=== PATIENT | male | born 1950 | race Caucasian/White ===

== ENCOUNTER 2017-07-29 21:35 | Inpatient (IN) | payer OTHER ==
[~2017-07-29] VITALS: Ht 177.8 cm; Wt 92.1 kg
[~2017-07-29 21:35] MED LIST: FISH OIL; MULTIVITAMIN; VITAMIN C500 M4 PO; VITAMIN E PO; Z.0.LEVOXYL137 MCG PO; Z.0.LIPITOR10 MG PO
[2017-07-29] MEDS ORDERED: FLOMAX0.4 MG PO (23:40)
[2017-07-29] MEDS ORDERED: LIPITOR20 MG (23:40)
[2017-07-30] MEDS ORDERED: ONDANSETRON HCL INJ 2 MG/ML VIAL IV ONE (00:15)
[2017-07-30] MEDS ORDERED: PANTOPRAZOLE 40 MG 10ML VIAL IV ONE (00:15)
[2017-07-30] MEDS ORDERED: MORPHINE SULFATE 4 MG/ML SYR IV ONE (00:15)
[2017-07-30] MEDS ORDERED: FAMOTIDINE 20 MG/2 ML VIAL IV ONE (00:15)
[2017-07-30] MEDS ORDERED: SODIUM CHLORIDE 0.9% 1000ML 1,000 ML IV SCH (00:45)
[2017-07-30] MEDS ORDERED: PIPERACILLIN/TAZOBAC 3.375 GM VIAL IV ONE (00:45)
[2017-07-30] MEDS ORDERED: MORPHINE SULFATE 2 MG/ML SYR IV PRN (00:45)
[2017-07-30] MEDS ORDERED: ONDANSETRON HCL INJ 2 MG/ML VIAL IV PRN (00:45)
[2017-07-30] MEDS: SODIUM CHLORIDE 0.9% 1000ML 1,000 ML IV SCH ×5 (03:12→21:38)
[2017-07-30 04:00] VITALS: BP 135/63
[2017-07-30] MEDS: PIPER-TAZ 3.375 GM 50 ML IV SCH ×3 (05:32→21:53)
[2017-07-30] MEDS ORDERED: PIPER-TAZ 3.375 GM/50 ML BAG IV SCH (06:00)
[2017-07-30 07:49] VITALS: BP 127/61
[2017-07-30] MEDS: FAMOTIDINE 20 MG/2 ML VIAL IV SCH ×2 (09:59→18:06)
[2017-07-30 12:09] VITALS: BP 126/68
--- NOTE | 2017-07-30 12:25 | Diagnostic Imaging Report ---
PROCEDURE:GALLBLADDER ULTRASOUND COMPARISON:None. INDICATION:Right upper quadrant pain TECHNIQUE:Mora scale color Doppler ultrasound gallbladder FINDINGS: Right liver spanning 15 cm. Normal parenchymal echogenicity and contour. Portal vein diameter 1.1 cm; normal flow direction. Subcentimeter calcified gallstone at the gallbladder neck. Wall thickness 0.6 cm with trace pericholecystic fluid. Common bile that diameter 4 mm. No sonographic Velez sign. Image portions of the IVC, aorta, pancreas and right kidney are unremarkable. CONCLUSION: Cholelithiasis with gallbladder wall thickening. In the absence of a positive sonographic Velez sign findings may be seen in both acute and chronic cholecystitis. Consider nuclear medicine study for further characterization if clinically warranted. Dictated by: Juan Miguel Cummings M.D. on 07/30/2017 at 12:26 Electronically approved by: Juan Miguel Cummings M.D. on 07/30/2017 at 12:26
[2017-07-30 16:01] VITALS: BP 146/71
[2017-07-30 20:00] VITALS: BP 148/72
[2017-07-30] MEDS: TAMSULOSIN HCL 0.4 MG CAP PO SCH (21:08)
[2017-07-31] VITALS (8 sets, daily range): BP systolic 144–184; BP diastolic 74–85
--- NOTE | 2017-07-31 00:16 | History and Physical ---
PRIMARY CARE DOCTOR: Dr. Moe Melendrez This is coverage for Dr. Galo Leija MD HISTORY: Mr. Jones is a pleasant 66-year-old gentleman with right upper quadrant tenderness. Patient was in his usual state of health until 2 days ago. He has never had pain like this before. Pain was in the right upper quadrant and epigastric area. The pain was 10/10 in severity. It was found to be worse after meals. It finally went away, but patient is not sure what caused it to go away. He did have to get some pain medicine. He elected to come to emergency room for acute evaluation. In the emergency room, he had gallbladder ultrasound with multiple subcentimeter calcified gallstones including at the gallbladder neck. Wall thickness 0.6 cm with trace pericholecystic fluid. Common bile duct 4 mm. Due to the severity of the pain that he had and due to the fact he has multiple stones including at the common bile duct, patient is being recommended for surgery and he is admitted. LFTs were also elevated. PAST MEDICAL HISTORY: Dyslipidemia, BPH, plantar fasciitis. SURGERY: Parathyroidectomy. MEDICATIONS: Levoxyl, Lipitor, Flomax. ALLERGIES: NO KNOWN DRUG ALLERGIES. SOCIAL HISTORY: No smoking, no drinking, no drugs. Patient is conductor/engineer. FAMILY HISTORY: Noncontributory to this condition. REVIEW OF SYSTEMS: GENERAL: No weight changes. OPHTHALMOLOGIC: No double vision. ENT: No dry mouth. IMMUNOLOGIC: No lupus. PULMONARY: No asthma. CARDIAC: No heart attacks. GI: No constipation. : No blood in urine. MUSCULOSKELETAL: Mild arthritis. NEUROLOGIC: No seizures. PSYCHIATRIC: No depression. OBJECTIVE: VITAL SIGNS: Afebrile, vital signs noted per electronic record. GENERAL: In no acute distress, alert and calm. HEENT: Normocephalic, atraumatic. NECK: Supple. Throat midline. LUNGS: Bilateral air entry, clear. CARDIOVASCULAR: S1 and S2. No murmurs, rubs, or gallops. ABDOMEN: Soft and nontender right now on my exam pain is gotten lot better. EXTREMITIES: No clubbing, no cyanosis, no edema. INTEGUMENT: No rash, no purpura. LABS: 3.7 potassium, 29 bicarbonate, 10 BUN, 1.0 creatinine, 139 sodium. 7 white count, 44 hematocrit, 230,000 platelets. AST 152, alkaline phosphatase 124, ALT 104, albumin 3.6. IMPRESSION AND PLAN: 1. Chronic cholecystitis. 2. Treat for acute cholecystitis. 3. Multiple cholelithiasis. 4. History of dyslipidemia. 5. Benign prostatic hypertrophy. 6. Elevated liver function tests. Patient with evolving gallbladder disease. Recommendations for early surgery. Patient will be admitted to observation and likely admitted for expectant surgery. Repeat liver function tests in the morning. Resume some outpatient medications. I would like to thank Dr. Moe Melendrez and Dr. Galo Leija for allowing me the chance to participate in the care of Mr. Jones. Do not hesitate to contact me if I can help in anyway. Job#: [id number]
--- NOTE | 2017-07-31 00:25 | Consultation ---
DATE OF CONSULTATION: July 30, 2017 CHIEF COMPLAINT: Abdominal pain. HISTORY OF PRESENT ILLNESS: The patient is 66-year-old male with 2-day history of pain in epigastric region, radiating to the back with nausea, but no vomiting. He denied diarrhea or fevers. PAST MEDICAL HISTORY: Unremarkable for any chronic medical illness. SURGICAL HISTORY: Positive for foot surgery for plantar fasciitis and thyroidectomy. ALLERGIES: PATIENT HAS NO DRUG ALLERGIES. SOCIAL HABITS: He does not smoke or drink alcohol. REVIEW OF SYSTEMS: No cough, chest pain, or shortness of breath. PHYSICAL EXAMINATION: VITAL SIGNS: Stable. He is afebrile. GENERAL: Patient is awake, alert, in moderate discomfort. HEENT: Sclerae nonicteric. NECK: Supple. LUNGS: Clear. HEART: Regular rate and rhythm. ABDOMEN: Soft with mild guarding in epigastric area. No rebound. EXTREMITIES: Without cyanosis or edema. LABORATORY DATA: The patient's bilirubin is 0.9, alkaline phosphatase of 124. The patient's white cell count is 9.8. Ultrasound of gallbladder showed gallstones. ASSESSMENT: Gallstone, possible cholecystitis. PLAN: Laparoscopic cholecystectomy. Attendant risks discussed with patient in detail. Thank you. Job#: [id number]
[2017-07-31] MEDS: SODIUM CHLORIDE 0.9% 1000ML 1,000 ML IV SCH ×3 (00:45→18:11)
[2017-07-31] MEDS: LEVOTHYROXINE SODIUM 25 MCG TABLET PO SCH (05:09)
[2017-07-31] MEDS: LEVOTHYROXINE SODIUM 112 MCG TAB PO SCH (05:09)
[2017-07-31] MEDS: PIPER-TAZ 3.375 GM 50 ML IV SCH ×3 (05:30→21:30)
[2017-07-31 07:04] LABS: BASOPHILS % 0.4 % (0.0-1.0); EOSINOPHILS # (AUTO) 0.2 (0.0-0.4); EOSINOPHILS % 2.9 % (0.0-6.0); HEMATOCRIT 36.7 % (38.2-49.6); HEMOGLOBIN 12.9 g/dL (14.0-18.0); LYMPHOCYTES # (AUTO) 0.7 (1.0-3.2); LYMPHOCYTES % 8.5 % (18.0-39.1); MEAN CORPUSCULAR HEMOGLOBIN 31.5 pg (28-32); MEAN CORPUSCULAR HGB CONC 35.1 g/dL (31-35); MEAN CORPUSCULAR VOLUME 89.5 fL (81-99); MONOCYTES # (AUTO) 0.6 (0.2-0.8); MONOCYTES % 7.5 % (4.4-11.3); NEUTROPHILS # (AUTO) 6.3 (2.1-6.9); NEUTROPHILS % 80.4 % (38.7-80.0); PLATELET COUNT 201 x10e3/uL (140-360)
[2017-07-31 07:25] LABS: ALANINE AMINOTRANSFERASE 619 IU/L (0-55); ALBUMIN 2.9 g/dL (3.5-5.0); ALBUMIN/GLOBULIN RATIO 1.1 (0.8-2.0); ALKALINE PHOSPHATASE 127 IU/L (40-150); ANION GAP 10.1 mmol/L (8-16); BLOOD UREA NITROGEN 8 mg/dL (7-26); BUN/CREATININE RATIO 8 (6-25); CALCIUM 8.4 mg/dL (8.4-10.2); CARBON DIOXIDE 25 mmol/L (22-29); CHLORIDE 107 mmol/L (98-107); CREATININE, SERUM 0.98 mg/dL (0.72-1.25); EST GLOMERULAR FILTRATION RATE > 60 ML/MIN (60-); GLUCOSE 110 mg/dL (74-118); LIPASE 30 U/L (8-78); POTASSIUM 4.1 mmol/L (3.5-5.1); SODIUM 138 mmol/L (136-145)
[2017-07-31] MEDS: FAMOTIDINE 20 MG/2 ML VIAL IV SCH ×2 (07:30→18:20)
[2017-07-31] MEDS ORDERED: BUPIVACAINE 0.5%/EPI 30 ML SDV INJ ONE (08:30)
[2017-07-31] MEDS ORDERED: BUPIVACAINE 0.25%/EPI 30ML SDV INJ ONE (08:37)
[2017-07-31] MEDS ORDERED: NEOSTIGMINE 1 MG/ML 10ML VIAL ONE (09:20)
[2017-07-31] MEDS ORDERED: MORPHINE SULFATE 2 MG/ML SYR IV PRN (12:45)
--- NOTE | 2017-07-31 13:26 | Operative Report ---
DATE OF PROCEDURE: July 31, 2017 PREOPERATIVE DIAGNOSIS: Cholecystitis. POSTOPERATIVE DIAGNOSIS: Cholecystitis. OPERATIVE PROCEDURE: Laparoscopic cholecystectomy. ANESTHESIA: General. INDICATION: The patient is a 66-year-old male with history of epigastric pain and gallstone noted. Patient had consented for laparoscopic cholecystectomy. Attendant risks were discussed. PROCEDURE FINDINGS: Chronic cholecystitis. DESCRIPTION OF PROCEDURE: The patient brought to the OR intubated. Abdomen prepped with alcohol and draped in a sterile fashion. Infraumbilical incision is made and a 10-mm port inserted. Insufflation begun. Under direct vision, other port sites placed in epigastric and right upper quadrant. Gallbladder is chronically inflamed. Fundus retracted in cephalad direction. Neck of the gallbladder retracted laterally. With blunt dissection, cystic artery is isolated, triple clipped, and divided. The cystic duct is dissected down to the junction with the common bile duct and cystic duct then triple clipped 1 cm away from the junction and cystic duct divided between clips. Gallbladder detached from the liver with cautery and taken out through umbilical port site. Operative field was irrigated and hemostasis achieved. All ports removed under direct vision. Fascia closed with interrupted 0 Vicryl and skin closed with subcuticular stitch. The patient was extubated and transported to the recovery room in guarded condition. Estimated blood loss 5 mL. Job#: [id number] PSO
[2017-07-31] MEDS ORDERED: FENTANYL CITRATE/PF 100MCG/2 ML INJ ONE (18:26)
[2017-07-31] MEDS ORDERED: MIDAZOLAM HCL 2 MG/2 ML VIAL ONE (18:26)
[2017-07-31] MEDS ORDERED: SEVOFLURANE INHAL SOLN 250 ML PEN BTL ONE (19:30)
[2017-07-31] MEDS ORDERED: ONDANSETRON HCL INJ 2 MG/ML VIAL ONE (19:30)
[2017-07-31] MEDS ORDERED: CEFOXITIN SOD 1 GM VIAL ONE (19:30)
[2017-07-31] MEDS ORDERED: KETOROLAC TROMETHAMINE 30 MG/ML VIAL ONE (19:30)
[2017-07-31] MEDS ORDERED: ROCURONIUM BROMIDE 10 MG/ML 5ML VIAL ONE (19:30)
[2017-07-31] MEDS ORDERED: DEXAMETHASONE SOD PHOS INJ 4 MG/ML VIAL ONE (19:30)
[2017-07-31] MEDS ORDERED: PROPOFOL IV EMULSION 10 MG/ML 20 ML VIAL ONE (19:30)
[2017-07-31] MEDS ORDERED: LIDOCAINE HCL 2% LOCAL INJ 5 ML SDV VIAL INJ ONE (19:30)
[2017-07-31] MEDS ORDERED: GLYCOPYRROLATE INJ 1MG/ 5 ML SYR ONE (19:30)
[2017-07-31] MEDS ORDERED: NEOSTIGMINE 5 MG/5ML SYR ONE (19:30)
[2017-07-31] MEDS: TAMSULOSIN HCL 0.4 MG CAP PO SCH (21:00)
--- NOTE | 2017-07-31 22:03 | Progress Note ---
DATE: July 31, 2017 INTERNAL MEDICINE PROGRESS NOTE Coverage for Dr. Galo Leija. SUBJECTIVE: Mr. Jones was seen and examined at bedside. Patient went to operating room today. Patient had successful laparoscopic cholecystectomy. Estimated blood loss was 5 mL. Patient went back to recovery room and he recovered well. He now in the room. Pain is minimal. He is able to mobilize. He did have some feeling of frequency, but a bladder scan only showed 131 mL and straight cath demonstrated 120 mL. 96% oxygen saturation on room air. REVIEW OF SYSTEMS: No headaches, no bleeding. OBJECTIVE: VITAL SIGNS: Afebrile, vital signs noted per electronic record. GENERAL: In no acute distress, alert and calm. HEENT: Normocephalic, atraumatic. NECK: Supple. Throat midline. LUNGS: Bilateral air entry, limited, but clear. CARDIOVASCULAR: S1, S2. No murmurs, rubs, or gallops. ABDOMEN: Soft, nontender. EXTREMITIES: No clubbing, no cyanosis, there is no edema. INTEGUMENT: No rash, no purpura. LABS: 0.9 creatinine. 4.1 potassium. 8 white count, 37 hematocrit, 201,000 platelets. IMPRESSION AND PLAN: 1. Postoperative state, status post laparoscopic cholecystectomy. 2. Cholecystitis, [id number]. 3. Refractory abdominal pain. 4. History of dyslipidemia, benign prostatic hypertrophy, elevated liver function tests, possible urge or bladder spasms. Continue postoperative care. Patient is back on clear liquid diet. Ambulate him. Antibiotics short course, but will consider based on followup results. Give appropriate deep venous thrombosis prophylaxis. Job#: [id number]
[2017-08-01] VITALS: BP 158/82
[2017-08-01] MEDS: SODIUM CHLORIDE 0.9% 1000ML 1,000 ML IV SCH ×2 (00:45→09:45)
[2017-08-01 04:00] VITALS: BP 176/84
[2017-08-01] MEDS: LEVOTHYROXINE SODIUM 25 MCG TABLET PO SCH (06:00)
[2017-08-01] MEDS: LEVOTHYROXINE SODIUM 112 MCG TAB PO SCH (06:00)
[2017-08-01] MEDS: PIPER-TAZ 3.375 GM 50 ML IV SCH ×2 (06:39→14:48)
[2017-08-01 09:14] VITALS: BP 152/71
[2017-08-01] MEDS: FAMOTIDINE 20 MG/2 ML VIAL IV SCH (09:45)
[2017-08-01 13:04] VITALS: BP 162/70
[2017-08-01] MEDS ORDERED: TYLENOL WITH C1 EACH PO (13:29)
--- NOTE | 2017-08-02 05:48 | Discharge Summary ---
PRIMARY CARE DOCTOR: Dr. Moe Melendrez COVERING PHYSICIAN: Dr. Leija PRIMARY DIAGNOSIS: Acute cholecystitis. SECONDARY DIAGNOSES: Includes: 1. Multiple cholelithiasis. 2. Dyslipidemia. 3. Benign prostatic hypertrophy. 4. Elevated liver function tests. MEDICATIONS ON DISCHARGE: See medication discharge record for details. ACTIVITY: As tolerated. DIET: GI bland diet. HOSPITAL COURSE: Mr. Jones was admitted with refractory right upper quadrant pain. Abdominal ultrasound included gallbladder with multiple gallstones and some of which going into the gallbladder neck. It was felt that this was reasonable for surgery. Furthermore, LFTs were elevated. Patient had operative cholecystectomy by laparoscopic method without complications. He was able to go home the following day. FOLLOWUP: 1. Follow with Dr. Orozco of surgery. 2. Follow with Dr. Moe Melendrez. Greater than 30 minutes in care and coordination for discharge. MEHRAN JIMENEZ MD Job#: [id number]
== END 2017-08-01 15:28 | disposition home or self-care (01) | DRG 419 ==
LOC: FSED 21:35 → MED/SURG 07-30 02:28
PROVIDERS: ADMIT Internal Medicine; ATTEND Internal Medicine
PROC: 0FT44ZZ Resection of Gallbladder, Percutaneous Endoscopic Approach (ICD-10-PCS; principal; 2017-07-31 09:00)
DX: K80.12 Calculus of gallbladder with acute and chronic cholecystitis without obstruction (principal); N32.89 Other specified disorders of bladder; E78.5 Hyperlipidemia, unspecified; N40.1 Benign prostatic hyperplasia with lower urinary tract symptoms; R39.15 Urgency of urination; E03.9 Hypothyroidism, unspecified; Z28.21 Immunization not carried out because of patient refusal
CPT/HCPCS: 36415; 74177; 76705; 80053; 81003; 83690; 85025; 88304; 93005; 96361; 99284; J0694; J1100; J1885; J2001; J2250; J2270; J2405; J2543; J2710; J7030

== ENCOUNTER → 2018-05-23 | Day surgery (SDC) | payer MEDICARE ==
[2018-05-10 15:28] LABS: BASOPHILS % 0.5 % (0.0-1.0); EOSINOPHILS # (AUTO) 0.1 (0.0-0.4); EOSINOPHILS % 1.7 % (0.0-6.0); HEMATOCRIT 42.9 % (38.2-49.6); HEMOGLOBIN 14.8 g/dL (14.0-18.0); LYMPHOCYTES # (AUTO) 2.9 (1.0-3.2); LYMPHOCYTES % 34.7 % (18.0-39.1); MEAN CORPUSCULAR HEMOGLOBIN 31.9 pg (28-32); MEAN CORPUSCULAR HGB CONC 34.5 g/dL (31-35); MEAN CORPUSCULAR VOLUME 92.5 fL (81-99); MONOCYTES # (AUTO) 0.9 (0.2-0.8); NEUTROPHILS # (AUTO) 4.3 (2.1-6.9); NEUTROPHILS % 51.7 % (38.7-80.0); PLATELET COUNT 251 x10e3/uL (140-360); RED BLOOD COUNT 4.64 x10e6/uL (4.3-5.7); RED CELL DISTRIBUTION WIDTH 13.2 % (11.7-14.4)
[~2018-05-23] MED LIST changes: +ASPIR 8181 MG PO; +FENTANYL CITRATE/PF 100MCG/2 ML INJ ONE; -FISH OIL; +FISH OIL PO; +FLOMAX0.4 MG PO; +LEVOXYL175 MCG PO; +LIPITOR20 MG; +MIDAZOLAM HCL 2 MG/2 ML VIAL ONE; +PROPOFOL IV EMULSION 10 MG/ML 50 ML VIAL ONE; +TYLENOL WITH C1 EACH PO; +VIT C PO
--- OUTSIDE RECORDS SUMMARY | 2018-05-23 05:32 | XMS REPORT | Continuity of Care Document ---
Author Author [facility] Interface Address Unknown Phone Unavailable Problems Problem Status Onset Date Classification Date Reported Comments Source Counseling 05/10/2018 Diagnosis 05/10/2018 [facility] Immunization 05/10/2018 Diagnosis 05/10/2018 [facility] Influenza vaccine needed 05/04/2018 Diagnosis 05/10/2018 [facility] Acute cholecystitis due to biliary calculus Active Problem 08/01/2017 [facility] Medications Medication Details Route Status Patient Instructions Ordering Provider Order Date Source Acetaminophen With Codeine (Tylenol With Codeine #3 Tablet) 1 Each Tablet Every 6 Hours as needed for Pain Active Darrell 08/01/2017 [facility] Ascorbate Calcium (Vitamin C) 500 Mg Tablet, 500 Mg Oral Daily Active 07/30/2017 [facility] Atorvastatin Calcium (Lipitor) 10 Mg Tablet, 10 Mg Oral Daily Active 01/19/2015 [facility] Atorvastatin Calcium (Lipitor) 20 Mg Tablet Daily Active [facility] Fish Oil Daily Active [facility] Levothyroxine Sodium (Levoxyl) 137 Mcg Tablet Daily Active [facility] Multivitamin Daily Active [facility] Tamsulosin Hcl (Flomax*) 0.4 Mg Cap Daily Active [facility] Vitamin E Daily Active [facility] Flomax Flomax Active [facility] Levoxyl Levoxyl Active [facility] Lipitor Lipitor Active [facility] Allergies, Adverse Reactions, Alerts Substance Category Reaction Severity Reaction type Status Date Reported Comments Source Immunizations Immunization Date Given Site Status Last Updated Comments Source pneumococcal conjugate PCV 13 05/10/2018 completed [facility] influenza, trivalent, adjuvanted 05/04/2018 completed [facility] Results Order Name Results Value Reference Range Date Interpretation Comments Source Automated blood basophil count (count/volume) Automated blood basophil count (count/volume) 0.0 0.0 - 0.1 07/31/2017 [facility] Automated blood basophil count as percentage of total leukocytes Automated blood basophil count as percentage of total leukocytes 0.4 0.0 - 1.0 07/31/2017 [facility] Automated blood eosinophil count Automated blood eosinophil count 0.2 0.0 - 0.4 07/31/2017 [facility] Automated blood eosinophil count as percentage of total leukocytes Automated blood eosinophil count as percentage of total leukocytes 2.9 0.0 - 6.0 07/31/2017 [facility] Automated blood hematocrit (volume fraction) Automated blood hematocrit (volume fraction) 36.7 38.2 - 49.6 07/31/2017 [facility] Automated blood lymphocyte count as percentage ot total leukocytes Automated blood lymphocyte count as percentage ot total leukocytes 8.5 18.0 - 39.1 07/31/2017 [facility] Automated blood monocyte count as percentage of total leukocytes Automated blood monocyte count as percentage of total leukocytes 7.5 4.4 - 11.3 07/31/2017 [facility] Automated blood neutrophil count Automated blood neutrophil count 6.3 2.1 - 6.9 07/31/2017 [facility] Automated blood platelet count (count/volume) Automated blood platelet count (count/volume) 201 140 - 360 07/31/2017 [facility] Automated blood segmented neutrophil count as percentage of total leukocytes Automated blood segmented neutrophil count as percentage of total leukocytes 80.4 38.7 - 80.0 07/31/2017 [facility] Automated erythrocyte mean corpuscular hemoglobin (mass per erythrocyte) Automated erythrocyte mean corpuscular hemoglobin (mass per erythrocyte) 31.5 28 - 32 07/31/2017 [facility] Automated erythrocyte mean corpuscular hemoglobin concentration measurement (mass/volume) Automated erythrocyte mean corpuscular hemoglobin concentration measurement (mass/volume) 35.1 31 - 35 07/31/2017 [facility] Automated erythrocyte mean corpuscular volume Automated erythrocyte mean corpuscular volume 89.5 81 - 99 07/31/2017 [facility] Blood erythrocytes automated count (number/volume) Blood erythrocytes automated count (number/volume) 4.10 4.3 - 5.7 07/31/2017 [facility] Blood hemoglobin measurement (moles/volume) Blood hemoglobin measurement (moles/volume) 12.9 14.0 - 18.0 07/31/2017 [facility] Blood leukocytes automated count (number/volume) Blood leukocytes automated count (number/volume) 7.85 4.8 - 10.8 07/31/2017 [facility] Blood lymphocytes count (number/volume) Blood lymphocytes count (number/volume) 0.7 1.0 - 3.2 07/31/2017 [facility] Blood monocytes automated count (number/volume) Blood monocytes automated count (number/volume) 0.6 0.2 - 0.8 07/31/2017 [facility] Estimated glomerular filtration rate (GFR) determination Estimated glomerular filtration rate (GFR) determination null 60 07/31/2017 [facility] Glucose measurement Glucose measurement 110 74 - 118 07/31/2017 [facility] Plasma globulin measurement (mass/volume) Plasma globulin measurement (mass/volume) 2.6 2.3 - 3.5 07/31/2017 [facility] Serum or plasma alanine aminotransferase measurement (enzymatic activity/volume) Serum or plasma alanine aminotransferase measurement (enzymatic activity/volume) 619 0 - 55 07/31/2017 [facility] Serum or plasma albumin measurement (mass/volume) Serum or plasma albumin measurement (mass/volume) 2.9 3.5 - 5.0 07/31/2017 [facility] Serum or plasma albumin/globulin mass ratio Serum or plasma albumin/globulin mass ratio 1.1 0.8 - 2.0 07/31/2017 [facility] Serum or plasma alkaline phosphatase measurement (enzymatic activity/volume) Serum or plasma alkaline phosphatase measurement (enzymatic activity/volume) 127 40 - 150 07/31/2017 [facility] Serum or plasma anion gap Serum or plasma anion gap 10.1 8 - 16 07/31/2017 [facility] Serum or plasma calcium measurement (mass/volume) Serum or plasma calcium measurement (mass/volume) 8.4 8.4 - 10.2 07/31/2017 [facility] Serum or plasma carbon dioxide, total measurement (moles/volume) Serum or plasma carbon dioxide, total measurement (moles/volume) 25 22 - 29 07/31/2017 [facility] Serum or plasma chloride measurement (moles/volume) Serum or plasma chloride measurement (moles/volume) 107 98 - 107 07/31/2017 [facility] Serum or plasma creatinine measurement (mass/volume) Serum or plasma creatinine measurement (mass/volume) 0.98 0.72 - 1.25 07/31/2017 [facility] Serum or plasma lipase measurement (enzymatic activity/volume) Serum or plasma lipase measurement (enzymatic activity/volume) 30 8 - 78 07/31/2017 [facility] Serum or plasma potassium measurement (moles/volume) Serum or plasma potassium measurement (moles/volume) 4.1 3.5 - 5.1 07/31/2017 [facility] Serum or plasma protein measurement (mass/volume) Serum or plasma protein measurement (mass/volume) 5.5 6.5 - 8.1 07/31/2017 [facility] Serum or plasma sodium measurement (moles/volume) Serum or plasma sodium measurement (moles/volume) 138 136 - 145 07/31/2017 [facility] Serum or plasma total bilirubin measurement (mass/volume) Serum or plasma total bilirubin measurement (mass/volume) 4.8 0.2 - 1.2 07/31/2017 [facility] Serum or plasma urea nitrogen measurement (mass/volume) Serum or plasma urea nitrogen measurement (mass/volume) 8 7 - 26 07/31/2017 [facility] Serum or plasma urea nitrogen/creatinine mass ratio Serum or plasma urea nitrogen/creatinine mass ratio 8 6 - 25 07/31/2017 [facility] Red Cell Distribution Width 14.0 11.7 - 14.4 07/31/2017 [facility] IM GRANULOCYTES % 0.3 0.0 - 1.0 07/31/2017 [facility] Absolute Immature Granulocyte (auto 0.02 0 - 0.1 07/31/2017 [facility] Aspartate Amino Transf (AST/SGOT) 347 5 - 34 07/31/2017 [facility] Vital Signs Vital Sign Value Date Comments Source Height 70 05/10/2018 [facility] Weight 210 05/10/2018 [facility] Height 70 05/04/2018 [facility] Weight 210 05/04/2018 [facility] Encounters Location Location Details Encounter Type Encounter Number Reason For Visit Attending Provider ADM Date DC Date Status Source Discharged Inpatient [id number] SILVERIO HOLLIS MD 07/30/2017 08/01/2017 [facility] [place] - [facility] - [id number] KELLY Jordan-C: [address] [place] [address], Ph. [id number] Junito Carranza 05/04/2018 [facility] [place] [facility] - [id number] KELLY Jordan-C: [address] [place] [address], Ph. [id number] Junito Carranza 05/04/2018 [facility] [place] [facility] - [id number] MICHELL CulverP-C: [address] [place] [address], Ph. [id number] Katharine Hinojosa 05/10/2018 [facility] Procedures Procedure Code Date Perfomer Comments Source Laparoscopic cholecystectomy [id number] 07/31/2017 LUIS [facility] US gallbladder [id number] 07/30/2017 JAKY [facility] Cholecystectomy [facility]
--- OUTSIDE RECORDS SUMMARY | 2018-05-23 05:32 | XMS REPORT | Encounter Summary ---
Author Organization Unknown Address [address] [place] [id number] Phone [phone] Care Team Providers Care Plug Wirer Name Role Phone Moe Melendrez MD 3 [phone] Reason for Visit Flu Immunization Instructions 1. Influenza vaccine needed Fluad 65yr up(PF)45 mcg(15 mcgx3)/0.5 mL intramuscular syringe influenza (flu) vaccine: care instructions Discussion Note: None recorded. Plan of Care Patient Instructions Influenza (flu) is an infection in the lungs and breathing passages. It is caused by the influenza virus. There are different strains, or types, of the flu virus every year. The flu comes on quickly. It can cause a cough, stuffy nose, fever, chills, tiredness, and aches and pains. These symptoms may last up to 10 days. The flu can make you feel very sick, but most of the time it doesn't lead to other problems. But it can cause serious problems in people who are older or who have a long-term illness, such as heart disease or diabetes. You can help prevent the flu by getting a flu vaccine every year, as soon as it is available. You cannot get the flu from the vaccine. The vaccine prevents most cases of the flu. But even when the vaccine doesn't prevent the flu, it can make symptoms less severe and reduce the chance of problems from the flu. Sometimes, young children and people who have an immune system problem may have a slight fever or muscle aches or pains 6 to 12 hours after getting the shot. These symptoms usually last 1 or 2 days. Follow-up care is a mcnair part of your treatment and safety. Be sure to make and go to all appointments, and call your doctor if you are having problems. It's also a good idea to know your test results and keep a list of the medicines you take. Who should get the flu vaccine? Everyone age 6 months or older should get a flu vaccine each year. It lowers the chance of getting and spreading the flu. The vaccine is very important for people who are at high risk for getting other health problems from the flu. This includes: Anyone 50 years of age or older. People who live in a long-term care center, such as a retirement. All children 6 months through 18 years of age. Adults and children 6 months and older who have long-term heart or lung problems, such as asthma. Adults and children 6 months and older who needed medical care or were in a hospital during the past year because of diabetes, chronic kidney disease, or a weak immune system (including HIV or AIDS). Women who will be during the flu season. People who have any condition that can make it hard to breathe or swallow (such as a brain injury or muscle disorders). People who can give the flu to others who are at high risk for problems from the flu. This includes all health care workers and close contacts of people age 65 or older. Who should not get the flu vaccine? The person who gives the vaccine may tell you not to get it if you: Have a severe allergy to eggs or any part of the vaccine. Have had a severe reaction to a flu vaccine in the past. Have had Guillain-Amezquita syndrome (GBS). Are sick with a fever. (Get the vaccine when symptoms are gone.) How can you care for yourself at home? If you or your child has a sore arm or a slight fever after the shot, take an uljj-kmo-tmsvhru pain medicine, such as acetaminophen (Tylenol) or ibuprofen (Advil, Motrin). Read and follow all instructions on the label. Do not give aspirin to anyone younger than 20. It has been linked to Mihaela syndrome, a serious illness. Do not take two or more pain medicines at the same time unless the doctor told you to. Many pain medicines have acetaminophen, which is Tylenol. Too much acetaminophen (Tylenol) can be harmful. When should you call for help? Call 911 anytime you think you may need emergency care. For example, call if after getting the flu vaccine: You have symptoms of a severe reaction to the flu vaccine. Symptoms of a severe reaction may include: Severe difficulty breathing. Sudden raised, red areas (hives) all over your body. Severe lightheadedness. Call your doctor now or seek immediate medical care if after getting the flu vaccine: You think you are having a reaction to the flu vaccine, such as a new fever. Watch closely for changes in your health, and be sure to contact your doctor if you have any problems. Reminders Provider Appointments None recorded. Lab None recorded. Referral None recorded. Procedures None recorded. Surgeries None recorded. Imaging None recorded. Medications Name Start Date Flomax Levoxyl Lipitor Medications Administered None recorded. Vitals Height Weight BMI 5 ft 10 in 210 lbs 30.1 kg/m2 Lab Results None recorded. Allergies Code Code System Name Reaction Severity Status Onset NKDA Problems No Known Problems Procedures Date Name Performed by Cholecystectomy Information not available Vaccine List None recorded. Social History Smoking Status Never Smoker Past Encounters 05/04/2018 Influenza Vaccine Needed Rosiejanettemaycol Dillon, KELLY-C: [address] [place] [address], Ph. History of Present Illness Immunization Reported By: Patient HPI: Immunization Request (normal) no symptoms. Immunization eligibility questions No vaccines in last month, No reaction to previous vaccines:, No Known Allergies Review of Systems:ROS as noted in the HPI Review of Systems Basic Reported By: Patient Constitutional: Constitutional: no fever Eyes: Eyes: no eye complaints Pmkp-Cutg-Omnhr-Throat: Ears: no ear complaints. Nose: no nose/sinus problems. Mouth/Throat: no sore throat, no bleeding gums, no mouth complaints, no teeth problems Cardiovascular: Cardiovascular: no chest pain, no shortness of breath, no known heart murmur Respiratory: Respiratory: no cough, no wheezing, no shortness of breath Gastrointestinal: Gastrointestinal: no abdominal pain, no vomiting / diarrhea Genitourinary: Genitourinary: no urinary complaints, no discharge Musculoskeletal: Musculoskeletal: no muscle aches, no muscle weakness, no arthralgias/joint pain, no back pain Skin: Skin: no abnormal / changing mole, no jaundice, no rashes Neurologic: Neurologic: no loss of consciousness, no weakness, no numbness, no seizures, no dizziness, no headaches Physical Exam Immunization Reported By: Patient General Appearance: General: well-developed, well-nourished, no acute distress
--- OUTSIDE RECORDS SUMMARY | 2018-05-23 05:32 | XMS REPORT | Encounter Summary ---
Author Organization Unknown Address [address] [place] [address] Phone [phone] Care Team Providers Care Cardroom Manager Name Role Phone Moe Melendrez MD 3 [phone] Reason for Visit Immunization Instructions 1. Immunization Prevnar 13 (PF) 0.5 mL intramuscular syringe 2. Counseling Discussion Note: None recorded. Patient educational handouts: No information available. Plan of Care Reminders Provider Appointments None recorded. Lab None [...] by Cholecystectomy Information not available Vaccine List Vaccine Type influenza, trivalent, adjuvanted 05/04/20180.5 mL pneumococcal conjugate PCV 13 05/10/20180.5 mL Social History Smoking Status Never Smoker Past Encounters 05/10/2018 Immunization; Counseling KELLY Culver-C: [address] [place] [address], Ph. 05/04/2018 Influenza Vaccine Needed KELLY Jordan-C: [address] [place] [address], Ph. History of Present Illness Immunization Reported By: Patient HPI: Immunization Request (normal) no symptoms. Immunization eligibility questions No vaccines in last month, No reaction to previous vaccines:, No Known Allergies Review of Systems:ROS as noted in the HPI Review of Systems None recorded. Physical Exam Immunization Reported By: Patient General Appearance: General: well-developed, well-nourished, no acute distress
--- OUTSIDE RECORDS SUMMARY | 2018-05-23 05:32 | XMS REPORT ---
Author Author [facility] Address Unknown Phone Unavailable Care Team Providers Care Humidifier Operator Name Role Phone Ashlie HOLLIS Unavailable Unavailable Problems This patient has no known problems. Allergies, Adverse Reactions, Alerts This patient has no known allergies or adverse reactions. Medications This patient has no known medications. Results Test Description Test Time Test Comments Text Results Atomic Results Result Comments US GALLBLADDER [place] [address] Patient Name: JAYDA KLEIN MR #: [id number] : 1950 Age/Sex: 66/M Req #: [id number] Adm Physician: SILVERIO HOLLIS MD Ordered by: BRANDY STARKEY MD Report #: [id number] Location: MED/SURG Room[facility]Bed: [facility] Procedure: [id number] US/US GALLBLADDER Exam Date: 07/30/17 Exam Time: 1109 REPORT STATUS: Signed PROCEDURE: GALLBLADDER ULTRASOUND COMPARISON: None. INDICATION: Right upper quadrant pain TECHNIQUE: Mora scale color Doppler ultrasound gallbladder FINDINGS: Right liver spanning 15 cm. Normal parenchymal echogenicity and contour. Portal vein diameter 1.1 cm; normal flow direction. Subcentimeter calcified gallstone at the gallbladder neck. Wall thickness 0.6 cm with trace pericholecystic fluid. Common bile that diameter 4 mm. No sonographic Velez sign. Image portions of the IVC, aorta, pancreas and right kidney are unremarkable. CONCLUSION: Cholelithiasis with gallbladder wall thickening. In the absence of a positive sonographic Velez sign findings may be seen in both acute and chronic cholecystitis. Consider nuclear medicine study for f urther characterization if clinically warranted. Dictated by: Amber Cummings M.D. on 07/30/2017 at 12:26 Electronically approved by: Amber Cummings M.D. on 07/30/2017 at 12:26 Dictated By: AMBER CUMMINGS MD 1226 Transcribed By: JAZMYNE on 07/30/17 1226 COPY TO: BRANDY STARKEY MD
--- NOTE | 2018-05-23 07:17 | NUR ---
SPIRITUAL CARE - Pre-Surgery Assessment: Pt in bed. Pt's at bedside. Pt reported supportive attention from family and friends. Intervention: I provided pastoral presence, hospitality, and sympathetic listening. I acquainted pt with availability of tacking stitch remover while hospitalized. Outcome: Pt expressed appreciation for visit. No need for follow up indicated at this time. JERE Pughlain Spiritual Care Department O: [phone] Pager: [phone] ([phone] number calling from)
[2018-05-23 09:10] VITALS: BP 128/90
--- NOTE | 2018-05-23 09:43 | Operative Report ---
DATE OF PROCEDURE: May 23, 2018 REFERRING PHYSICIAN: Moe Pinedo MD PROCEDURE PERFORMED: Colonoscopy and polypectomy. INDICATIONS FOR COLONOSCOPY: Surveillance colonoscopy, personal history of colon polyps. MEDICATION: Patient was done under MAC. Please see anesthesiologist's note. PROCEDURE: With the patient in the left lateral decubitus position, the flexible fiberoptic Olympus colonoscope was inserted into the rectum with ease and advanced all the way to the cecum. It was then withdrawn slowly. Mucosa overlying the cecum, ascending colon, and transverse colon appeared to be within normal limits. Diverticular disease was noted to involve the descending and the sigmoid colon. One polyp was hot biopsied from the sigmoid colon. The rectum appeared to be within normal limits. The scope was then retroflexed into the distal rectum, and small internal hemorrhoids were noted, none of which was actively bleeding. The scope was then straightened out. It was subsequently withdrawn. Patient tolerated the procedure well. IMPRESSION 1. Diverticulosis. 2. Sigmoid colon polyp, hot biopsied. 3. Internal hemorrhoids, none actively bleeding. PLAN: Follow up histology. Initiate high-fiber, low-fat diet. Initiate high-fiber supplement. Patient might benefit from a followup colonoscopy in 5 years. Job#: [id number] cc:MOE PINEDO MD
== END | disposition home or self-care (01) ==
LOC: OR 05:29
PROVIDERS: ATTEND Internal Medicine Gastroenterology
DX: Z09 Encounter for follow-up examination after completed treatment for conditions other than malignant neoplasm (principal); K63.5 Polyp of colon; K57.30 Diverticulosis of large intestine without perforation or abscess without bleeding; K64.8 Other hemorrhoids; E78.5 Hyperlipidemia, unspecified; E03.9 Hypothyroidism, unspecified; N40.0 Benign prostatic hyperplasia without lower urinary tract symptoms; I10 Essential (primary) hypertension; Z01.810 Encounter for preprocedural cardiovascular examination; Z01.812 Encounter for preprocedural laboratory examination; Z79.82 Long term (current) use of aspirin; Z68.31 Body mass index [BMI] 31.0-31.9, adult
CPT/HCPCS: 36415; 45384; 85025; 88305; 93005; J2250; 45378

== ENCOUNTER → 2024-05-28 | Day surgery (SDC) | payer MEDICARE ==
[2024-05-22 10:32] LABS: BASOPHILS % 0.7 % (0.0-1.0); EOSINOPHILS # (AUTO) 0.2 (0.0-0.4); EOSINOPHILS % 2.6 % (0.0-6.0); HEMATOCRIT 44.6 % (38.2-49.6); HEMOGLOBIN 14.3 g/dL (14.0-18.0); LYMPHOCYTES # (AUTO) 2.3 (1.0-3.2); LYMPHOCYTES % 38.9 % (18.0-39.1); MEAN CORPUSCULAR HEMOGLOBIN 31.5 pg (28-32); MEAN CORPUSCULAR HGB CONC 32.1 g/dL (31-35); MEAN CORPUSCULAR VOLUME 98.2 fL (81-99); MONOCYTES # (AUTO) 0.6 (0.2-0.8); MONOCYTES % 10.5 % (4.4-11.3); NEUTROPHILS # (AUTO) 2.7 (2.1-6.9); NEUTROPHILS % 47.1 % (38.7-80.0); PLATELET COUNT 267 x10e3/uL (140-360); RED BLOOD COUNT 4.54 x10e6/uL (4.3-5.7); RED CELL DISTRIBUTION WIDTH 13.3 % (11.7-14.4); WHITE BLOOD COUNT 5.81 x10e3/uL (4.8-10.8)
[~2024-05-28] MED LIST changes: +AMITRIPTYLINE H10 MG PO; +CEPHALEXIN500 MG PO; +GLYCOPYRROLATE INJ 0.2 MG/ML VIAL ONE; +HYDROCODON-ACE1 EA12 PO; +LIDOCAINE HCL 2% LOCAL INJ 5 ML SDV VIAL INJ ONE; +LOSARTAN POTASS25 MG PO; -MIDAZOLAM HCL 2 MG/2 ML VIAL ONE; -PROPOFOL IV EMULSION 10 MG/ML 50 ML VIAL ONE; +PROPOFOL IV EMULSION 50 ML IV ONE
[2024-05-28] MEDS: LACTATED RINGER'S 1,000 ML ONE (07:13)
[2024-05-28 10:00] VITALS: BP 139/81; PULSE 76; RESP 16; TEMP 97.4; O2SAT 95
== END | disposition home or self-care (01) ==
LOC: OR 06:57
PROVIDERS: ATTEND Internal Medicine Gastroenterology
DX: Z09 Encounter for follow-up examination after completed treatment for conditions other than malignant neoplasm (principal); D12.4 Benign neoplasm of descending colon; K57.30 Diverticulosis of large intestine without perforation or abscess without bleeding; K63.89 Other specified diseases of intestine; K64.8 Other hemorrhoids; E66.01 Morbid (severe) obesity due to excess calories; Z01.810 Encounter for preprocedural cardiovascular examination; Z01.812 Encounter for preprocedural laboratory examination; Z79.82 Long term (current) use of aspirin; Z79.899 Other long term (current) drug therapy
CPT/HCPCS: 36415; 45380; 45385; 85025; 88305; 93005; J2003; J2704; J3010; J7121; 45378